=== PATIENT | female | born 1985 ===

== ENCOUNTER 2017-07-29 10:59 | Inpatient (IN) | payer BC ==
[2017-07-29 11:13] VITALS: BMI 31.6
[2017-07-29] MEDS ORDERED: Penicillin G 5 Million Unit Vial IVPB ONE ×2 (11:26→12:06)
[2017-07-29] MEDS: Lactated Ringer's 1,000 ML IV SCH ×2 (12:00→20:13)
--- NOTE | 2017-07-29 12:28 | OBHP ---
Datetime: 07/29/2017 12:22 IP Adm Impression: Term, intrauterine ; Active labor IP Admit Plan: Admit to unit; Initiate labor protocol Admit Comment, IP Provider: Chief complaint-contractions HPI 32 y/o at 38 weeks and 4 days with c/o contractions.denies vaginal bleeidng or loss of fl uid course complicated by IUGR; stresssful relationship between the FOB and her PMH denies PSH liposuction, breast implants Social hx denies tobacco,alcohol or illicit drug use Exam see exam section A/P 32 y/o at 38.4 wga in labor.IUGR.GBS unknown -admit -start pen G -Monitor closely see exam section Pelvic Type - PN: Adequate Extremities - PN: Normal Abdomen - PN: Normal Back - PN: Normal Lungs - PN: Normal Heart - PN: Normal Neurologic - PN: Normal General - PN: Normal Weight - Estimated: 3200 Presentation-Admit: Vertex Contraction Comments Provider: irregular Gestation - Est Wks by US: 38.4 IP Hx Assessment: The History has been Reviewed and is Current EGA AdmitDate IP: 38.4 Vital Signs Provider: Reviewed; Within Normal Limits IP Chief Complaint: Uterine contractions FHR Category Provider Fetus A: Category I Dilatation, Provider: 3 Effacement, Provider: 90 Station, Provider: -1 Genitourinary Exam: Normal DTRs - PN: Normal
[2017-07-29 12:30] LABS: BASO % 0.3 % (0.0-2.0); EOS # 0.1 K/uL (0.0-0.7); EOS % 0.6 % (0.0-4.0); LYMPH # 1.3 K/uL (1.0-4.3); LYMPH % 13.4 % (20.0-40.0); MEAN CELL VOLUME 85.1 fL (81.0-99.0); MEAN CORPUSCULAR HEMOGLOBIN 28.9 pg (27.0-31.0); MEAN PLATELET VOLUME 9.5 fL (7.2-11.7); MONO # 0.5 K/uL (0.0-0.8); MONO % 5.4 % (0.0-10.0); NRBC % 0.1 % (0.0-2.0); WHITE BLOOD COUNT 9.9 K/uL (4.8-10.8)
[2017-07-29] MEDS ORDERED: Oxytocin 30 UNIT 30 UNITS/500 ML BAG IV SCH (12:30)
[2017-07-29 12:45] LABS: ALB/GLOB RATIO 0.9 (1.0-2.1); ALKALINE PHOSPHATASE 166 U/L (38-126); ALT/SGPT 49 U/L (9-52); AST/SGOT 30 U/L (14-36); BILIRUBIN,TOTAL 0.3 mg/dL (0.2-1.3); BLOOD UREA NITROGEN 12 mg/dL (7-17); CALCIUM 8.5 mg/dl (8.6-10.4); CARBON DIOXIDE 23 mmol/L (22-30); CHLORIDE 105 mmol/L (98-107); GFR AFRICAN-AMERICAN > 60; GLUCOSE,RANDOM 73 mg/dL (65-105); POTASSIUM 3.9 mmol/L (3.6-5.2); SODIUM 134 mmol/L (132-148); TOTAL PROTEIN 7.5 g/dL (6.3-8.3)
[2017-07-29 12:57] LABS: RBC URINE 1 /hpf (0-3); URINE BACTERIA RARE (<OCC); URINE BILIRUBIN NEGATIVE (NEGATIVE); URINE BLOOD NEGATIVE (NEGATIVE); URINE COLOR Yellow (YELLOW); URINE GLUCOSE (UA) NORMAL (Normal); URINE KETONE NEGATIVE (NEGATIVE); URINE LEUKOCYTE ESTERASE NEG Leu/uL (Negative); URINE PROTEIN NEGATIVE (NEGATIVE); URINE UROBILINOGEN NORMAL mg/dL (0.2-1.0); WBC URINE 5 /hpf (0-5)
[2017-07-29] MEDS ORDERED: Oxytocin 30 UNIT 30 UNITS/500 ML BAG IV ONE (13:48)
[2017-07-29] MEDS: Penicillin G Potassium 2.5 MU in Dextrose 5% In Water 50 ML IVPB SCH ×2 (16:37→20:43)
--- NOTE | 2017-07-29 16:54 | OBHP ---
Datetime: 07/29/2017 12:22 Admit Comment, IP Provider: Chief complaint-contractions HPI 32 y/o at 38 weeks and 4 days with c/o contractions.denies vaginal bleeidng or loss of fl uid course complicated by IUGR; stresssful relationship between the FOB and her PMH denies PSH liposuction, breast implants Social hx denies tobacco,alcohol or illicit drug use Exam see exam section A/P 32 y/o at 38.4 wga in labor.IUGR.GBS unknown -admit -start pen G -Monitor closely addendum privae patient of Dr HOROWITZ Weight - Estimated: 2800 EGA AdmitDate IP: 38.4
[2017-07-29] MEDS ORDERED: Bupivacaine 0.125%/FentaNYL 200 ML EPI ONE (18:51)
[2017-07-29] MEDS ORDERED: cefOXitin IV 2 gm in Dextrose 2 GM/50 ML BAG IVPB ONE (23:35)
[2017-07-29] MEDS ORDERED: Sodium Bicarbonate (8.4%) 50 mEq Vial ONE (23:37)
[2017-07-29] MEDS ORDERED: Lidocaine 2% MPF (5 ml) Inj ONE (23:38)
--- NOTE | 2017-07-29 23:43 | OBPN ---
Datetime: 07/29/2017 23:36 IP Progress Note Comment: patient fully and pushing for more than 2 hours head+1 station Fht cat2 Patiente exhausted and requesting csection Discussed with patient about operative vaginal delivery versus csection Risks and benefits of each discussed.Reviewed that vacuum assisted delivery could be attempoted if head is +2,Patient extremely exhausted and does not wnat to push any more and also refused vacuum as sisted delivery Voices understanding the risks of csection Informed consnet obatiend Anesthesia called will proceed for csection once OR ready Vital Signs Provider: Reviewed FHR Category Provider Fetus A: Category II Dilatation, Provider: 10 Effacement, Provider: 100 Station, Provider: 1 Datetime: 07/29/2017 12:22 Contraction Comments Provider: irregular Gestation - Est Wks by US: 38.4 Weight - Estimated: 2800 Presentation-Admit: Vertex
[2017-07-29] MEDS ORDERED: Sodium Citrate/Citric Acid 15 ml Sol PO ONE (23:45)
[2017-07-29] MEDS ORDERED: Oxytocin 20 units in LR 2,000 ML IV ONE (23:48)
[2017-07-29] MEDS ORDERED: Morphine 1 mg/ml preservative-free Inj(Duramorph) ONE (23:57)
[2017-07-30] MEDS ORDERED: Phenylephrine 10 mg/ml Inj ONE (00:28)
[2017-07-30] MEDS ORDERED: ePHEDrine 50 mg/ml Inj ONE (00:28)
[2017-07-30] MEDS ORDERED: Lidocaine 2% MPF (5 ml) Inj ONE (00:38)
[2017-07-30] MEDS ORDERED: Midazolam 2 MG/2 ML VIAL ONE (00:38)
[2017-07-30] MEDS ORDERED: Ketamine 50 mg/ml Inj (10 ml) ONE (00:38)
[2017-07-30] MEDS ORDERED: DiphenhydrAMINE 50 mg/ml Inj IVP PRN (01:10)
[2017-07-30] MEDS ORDERED: Oxycodone/Acetaminophen 5/325 mg Tab PO PRN (01:47)
--- NOTE | 2017-07-30 01:47 | OBDS ---
DELIVERY PERSONNEL Delivery Doctor: Neno Tee MD Collar Cutter: Geovanna Colbert RN Anesthesiologist: Kimberly Hatch MD Resident: Ynes Riveram, DO MATERNAL INFORMATION Delivery Anesthesia: Epidural Estimated Blood Loss (ml): 800 Provider Comments: primary csection ebl 800cc apgars 9/9 at1 and 5 min of life LABOR SUMMARY EDC: 08/08/2017 00:00 No. Babies in Womb: 1 Labor Anesthesia: Epidural LABOR INFORMATION Onset of Labor: 07/29/2017 11:35 Complete Dilatation: 07/29/2017 20:08 Oxytocin: Augmentation Group B Beta Strep: Done, Result Unknown Antibiotics # of Doses: 3 Antibiotics Time of Last Dose: 2042 Steroids Given: None Reason Steroids Not Administered: Not Applicable MEMBRANES Membranes Rupture Method: Artificial Rupture of Membranes: 07/29/2017 20:08 Length of Rupture (hrs): 4.10 Amniotic Fluid Color: Clear Amniotic Fluid Amount: Small STAGES OF LABOR Stage 1 hrs: 8 Stage 1 min: 33 Stage 2 hrs: 4 Stage 2 min: 6 Stage 3 hrs: -23 Stage 3 min: -58 Total Time in Labor hrs: -11 Total Time in Labor min: -19 CSECTION DELIVERY Primary Indication: Arrest of Descent CSection Urgency: Non Elective CSection Incidence: Primary Labor: Labor Elective: Nonelective CSection Incision: Lower Uterine Transverse BABY A INFORMATION Infant Delivery Date/Time: 07/30/2017 00:14 Method of Delivery: Born in Route : No : N/A Forceps: N/A Vacuum Extraction: N/A Shoulder Dystocia : No SHOULDER DYSTOCIA BABY A Infant Delivery Date/Time: 07/30/2017 00:14 PRESENTATION/POSITION BABY A Presentation: Cephalic Cephalic Presentation: Vertex Vertex Position: Left Occipital Posterior Breech Presentation: N/A PLACENTA INFORMATION BABY A Placenta Delivery Time : 07/29/2017 00:16 Placenta Method of Delivery: Expressed Placenta Status: Delivered SCORES BABY A Heart Rate 1 min: >100 bpm Resp Effort 1 min: Good Cry Reflex Irritability 1 min: Cough or Sneeze or Pulls Away Muscle Tone 1 min: Active Motion Color 1 min: Body Burnside, Extremities Blue Resuscitation Effort 1 min: Tactile Stimulation SCORE 1 MIN: 9 Heart Rate 5 min: >100 bpm Resp Effort 5 min: Good Cry Reflex Irritability 5 min: Cough or Sneeze or Pulls Away Muscle Tone 5 min: Active Motion Color 5 min: Body Burnside, Extremities Blue Resuscitation Effort 5 min: N/A SCORE 5 MIN: 9 INFORMATION BABY A Gestational Age at Delivery: 38.5 Gestational Status: Term Infant Outcome : Liveborn Condition : Stable Sex: Female IDENTIFICATION/MEDS BABY A ID Band Number: [id number] ID Band Location: Left Leg; Left Arm Sensor Applied: Yes Sensor Number: [id number] Sensor Location : Cord Clamp Vitamin K Given : Not Given Erythromycin Given: Not Given WEIGHT/LENGTH BABY A Infant Birthweight (gms): 2690 Weight (lb): 5 Infant Weight (oz): 15 Infant Length Inches: 18.50 Length cms: 47.0 CORD INFORMATION BABY A No. Cord Vessels: 3 Nuchal Cord : Around Neck x2, Loose Cord pH Baby Venous: 7.25 Cord Blood Taken: Yes Infant Suction: Mouth; Nose ASSESSMENT BABY A Complications: None Physical Findings at Delivery: Within Normal Limits Infant Respirations: Appears Normal Otr Driver/ALS Called : No Infant Care By: Dr Caba Transferred To: Remains with Mother
[2017-07-30] MEDS: cefOXitin IV 2 gm in Dextrose 2 GM/50 ML BAG IVPB SCH ×2 (08:51→16:36)
[2017-07-30] MEDS: Lactated Ringer's 1,000 ML IV SCH (08:52)
[2017-07-30] MEDS: Oxycodone/Acetaminophen 5/325 mg Tab PO PRN (09:37)
[2017-07-30] MEDS: Simethicone 80 mg Chewtab PO SCH ×4 (09:59→21:27)
--- NOTE | 2017-07-30 10:24 | OP ---
PROCEDURE DATE: 07/30/2017 PREOPERATIVE DIAGNOSIS: Arrest of descent. POSTOPERATIVE DIAGNOSIS: Arrest of descent. PROCEDURE: Primary low transverse section. SURGEON: Jaylan Tee MD. FACILITIES PLANT ENGINEER: Dr. Jovana Rowell, PGY1. TYPE OF ANESTHESIA: Epidural. ANESTHESIA ADMINISTERED BY: Jose R Hatch MD. COMPLICATIONS: None. ESTIMATED BLOOD LOSS: 800 mL. FINDINGS: A viable female in vertex presentation with Apgars of 9 at 1 minute and 9 at 5 minutes of life. Nuchal x2 around neck, loose. Normal-appearing uterus, tubes, and ovaries bilaterally. SPECIMEN: Placenta and cord blood. Cord blood pH being 7.25. DESCRIPTION OF PROCEDURE: After informed consent was obtained, the patient was taken to the operating room and placed in dorsal supine position with a leftward tilt. The epidural anesthesia had already been bolused by the anesthesia team. The Castle catheter was confirmed to be draining urine. She was then prepped and draped in the usual sterile manner. A Pfannenstiel skin incision was then made with a scalpel and carried down to the underlying layer of the fascia with the help of the Bovie. The fascia was then incised in the midline and the incision was extended laterally with the help of Ramsey scissors as well. The superior aspect of the fascial incision was then grasped with Luis clamps to elevate it and the underlying rectus muscle was dissected off. Attention was then turned to the inferior aspect of the fascial incision, which in a similar fashion, was grasped with Luis clamps to elevate it and the underlying rectus muscle was dissected off. The rectus muscle was in the midline. The peritoneum was thereafter entered bluntly. The bladder blade was then inserted and the vesicouterine peritoneum was identified. A transverse incision was made over the vesicouterine peritoneum with the help of Metzenbaum scissors and this incision was extended laterally and a bladder flap was created sharply. The bladder blade was then reinserted and the low uterine segment identified. A transverse incision was made over the low uterine segment and this was extended laterally with the help of bandage scissors. The 's head was then lifted out of the pelvis and thereafter delivered. Nuchal x2 around the neck was found. They were loose and reduced. The nose and the mouth were suctioned while the body and the shoulders were delivered. The cord was then clamped and cut and the infant was handed over to the awaiting pediatricians. A segment of cord was taken for cord gases. The cord blood was thereafter collected and the placenta was then manually removed. The uterus was exteriorized and cleared off all clots and debris. The uterine incision was repaired with 0 Polysorb in a running locked fashion. A second layer using 0 Monocryl was used to imbricate the first layer and also to obtain hemostasis. Adequate hemostasis was noted from the uterine incision repair site. The uterus was returned to the patient's abdomen. The gutters were cleaned and suctioned. Uterine incision repair site was inspected for hemostasis and no bleeding points were noted in the mid section. This was suture ligated using 2-0 chromic using [id number] suture. Adequate hemostasis was noted from the uterine incision repair site. Surgicel was thereafter placed over the uterine incision repair site. The muscle layer was reapproximated with 2-0 Polysorb in running fashion. The fascia was closed with 0 Vicryl in running fashion. The subcutaneous tissue was reapproximated with 2-0 Polysorb in running fashion. The skin was thereafter closed with 3-0 Monocryl in a subcuticular manner. The patient was thereafter cleaned, Steri-Strips were applied, and taken to the recovery room in stable condition. The Castle catheter was left in situ for postop bladder drainage. Please note that the cord blood pH returned as 7.25. Jaylan Tee MD
[2017-07-30 14:21] LABS: BASO % 0.2 % (0.0-2.0); EOS % 0.2 % (0.0-4.0); HEMATOCRIT 32.2 % (34.0-47.0); LYMPH # 1.1 K/uL (1.0-4.3); LYMPH % 8.6 % (20.0-40.0); MEAN CELL VOLUME 85.9 fL (81.0-99.0); MEAN CORPUSCULAR HEMOGLOBIN 28.8 pg (27.0-31.0); MEAN CORPUSCULAR HGB CONC 33.5 g/dL (33.0-37.0); MEAN PLATELET VOLUME 9.1 fL (7.2-11.7); MONO # 0.8 K/uL (0.0-0.8); MONO % 6.1 % (0.0-10.0); PLATELET COUNT 223 K/uL (130-400); RED CELL DISTRIBUTION WIDTH 12.9 % (11.5-14.5); WHITE BLOOD COUNT 13.3 K/uL (4.8-10.8)
[2017-07-30 14:56] LABS: EOSINOPHIL 1 % (0-4); NEUTROPHIL 68 % (50-75); REACTIVE LYMPHOCYTES 1 % (0-0); TOTAL CELLS COUNTED 100
[2017-07-31] MEDS ORDERED: Bisacodyl 5mg EC Tab PO ONE (01:47)
[2017-07-31 08:31] LABS: BASO % 0.3 % (0.0-2.0); EOS # 0.1 K/uL (0.0-0.7); EOS % 0.6 % (0.0-4.0); HEMATOCRIT 30.9 % (34.0-47.0); LYMPH # 1.2 K/uL (1.0-4.3); LYMPH % 9.7 % (20.0-40.0); MEAN CELL VOLUME 86.5 fL (81.0-99.0); MEAN CORPUSCULAR HEMOGLOBIN 28.4 pg (27.0-31.0); MEAN CORPUSCULAR HGB CONC 32.8 g/dL (33.0-37.0); MEAN PLATELET VOLUME 9.2 fL (7.2-11.7); MONO # 0.6 K/uL (0.0-0.8); PLATELET COUNT 231 K/uL (130-400); RED CELL DISTRIBUTION WIDTH 13.1 % (11.5-14.5); WHITE BLOOD COUNT 12.3 K/uL (4.8-10.8)
[2017-07-31 09:50] LABS: BASOPHIL 1 % (0-2); NEUTROPHIL 68 % (50-75); REACTIVE LYMPHOCYTES 3 % (0-0); TOTAL CELLS COUNTED 100
[2017-07-31] MEDS: Simethicone 80 mg Chewtab PO SCH ×4 (10:10→22:10)
[2017-07-31] MEDS: Oxycodone/Acetaminophen 5/325 mg Tab PO PRN ×2 (17:14→22:08)
[2017-08-01] MEDS: Oxycodone/Acetaminophen 5/325 mg Tab PO PRN (04:45)
[2017-08-01] MEDS: Simethicone 80 mg Chewtab PO SCH ×4 (09:44→22:26)
[2017-08-02] MEDS ORDERED: Oxycodone/Acetaminophen 5/325 mg Tab PO PRN ×2 (06:48)
--- NOTE | 2017-08-02 07:02 | OBPPN ---
Datetime: 08/02/2017 07:00 PP Pain Prov: Within normal limits PP Nausea Prov: Denies PP Flatus Prov: Yes PP BM Prov: Yes PP Heart Prov: Normal PP Lungs Prov: Normal PP Abdomen/Uterus Prov: Normal PP CVA Tenderness Prov: Normal PP Extremities Prov: Normal PP C/S Incision Prov: Normal PP Progress Prov: Normal PP Impression Prov: Normal progression PP Plan Prov: Discharge Vital Signs Provider PP: Reviewed; Within Normal Limits Datetime: 08/01/2017 11:40 PP Lochia Prov: Normal PP Progress Note Prov: Patient seen and examined at bedside. Per nursing no acute events overnight. Patient is doing well, pain is controlled. Lochia is mild. Ambulating and tolerating diet. Urinating without difficulty. Passing flatus and having BM. Breast and bottle feeding. Denies headache, dizzine ss, cp, palpitations, sob, urinary symptoms. VS: 117/67 86 98.9 Gen: AAOx3 CV: RRR Lungs: CTA B/L Abd: Soft, appropriately tender, fundus firm below umbilicus, incision c/d/i with steristrips Ext: No clubbing, cyanosis, edema; no calf tenderness Labs: 9.9>12.6/37.0<286 13.3>10.8/32.2<223 O positive Rubella immune A/P: 31 year old at 38w5d s/p PLTCD 2/2 arrest of descent POD#2 -Stable, afebrile -Pain control with motrin and percocet prn -Encourage ambulation and hydration -Encourage breast feeding -Continue routine care -Anticipate D/C home tomorrow -Plan d/w attending Jennifer Rowell DO PGY-1 agree withabove
--- NOTE | 2017-08-02 07:05 | OBDCSUM ---
Datetime: 08/02/2017 07:03 Discharged to, Provider: Home Follow up at, Provider: dr macias Disch Instr Diet: Regular Discharge Instructions, Provider: Routine instructions given Discharge Diagnosis, Provider: Term Delivered Discharge Time: 08/02/2017 07:03 Follow up in weeks, Provider: 2 weeks Disch Referrals: None Disch Activity Restrictions: No exercising; No lifting; No sexual activity; Nothing in vagina - Inte rcourse, tampons, douche Discharge Comment, Provider: go to er or call the office if you have fever .100.5f, severe pain, hea vy bleeidng or any other problems Discharge Diagnosis Prov Other: s/p csection Contraception after Delivery: Undecided
--- NOTE | 2017-08-02 07:05 | OBPPN ---
Datetime: 08/02/2017 07:00 PP Progress Note Prov: S-patient reports that the pain is well controlled.denies nausea, vomiting, h eadache, chest pain, shortness of breath.ambulating and voiding without difficulty O-VSS Afberile Fundus firm and below umbiloicus Incision clean, dry and intact extremities no calf tenderness A/P Patient s/p csection pod 3 doing well -discharge today -follow up in office in 2 weeks
[2017-08-02] MEDS: Simethicone 80 mg Chewtab PO SCH (09:33)
[2017-08-02 09:44] VITALS: BP 128/85; PULSE 84; RESP 18; TEMP 97.5; O2SAT 99
== END 2017-08-02 10:58 | disposition home or self-care (01) | DRG 766 ==
LOC: C.EROB 10:59 → C.4D 11:40 → EEVIPCON 11:40 → UNDOADMIN 11:43 → C.4D 11:43 → C.4M 07-30 04:30
PROVIDERS: ADMIT Student in an Organized Health Care Education/Training Program; ATTEND Student in an Organized Health Care Education/Training Program
PROC: 10D00Z1 Extraction of Products of Conception, Low, Open Approach (ICD-10-PCS; principal; 2017-07-30)
DX: O36.5930 Maternal care for other known or suspected poor fetal growth, third trimester, not applicable or unspecified (principal); O64.0XX0 Obstructed labor due to incomplete rotation of fetal head, not applicable or unspecified; O62.1 Secondary uterine inertia; O69.81X0 Labor and delivery complicated by cord around neck, without compression, not applicable or unspecified; Z98.82 Breast implant status; Z3A.38 38 weeks gestation of pregnancy; Z37.0 Single live birth